=== PATIENT | male | born 1955 | race Caucasian/White ===

== ENCOUNTER 2016-09-29 12:54 | Emergency (ER) | payer OTHER ==
[~2016-09-29] VITALS: Ht 193 cm; Wt 104.0 kg
[~2016-09-29 12:54] MED LIST: BUSP5TAB PO; CEPH500C PO; LACT PO; LEVO.125 PO; OXYC1TAB63 PO; blood pressure med PO
[2016-09-29 12:56] VITALS: BP 129/75; PULSE 75; RESP 16; TEMP 97.7; O2SAT 96
[2016-09-29] MEDS ORDERED: CARBAMIDE PEROXIDE 6.5% OTIC SOLN 15 ML BTL RIGHT EAR ONE (13:15)
--- NOTE | 2016-09-29 13:17 | PD ---
HPI Chief Complaint: ENT Complaint Time Seen by Provider: 13:12 Travel History International Travel<30 days: No Contact w/Intl Traveler<30days: No Traveled to known affect area: No History of Present Illness HPI 60-year-old male presents to the emergency room for evaluation of right ear fullness, pain, and disequilibrium for the past 3 days. Patient states when symptoms started he purchased multiple [id number] remedies to remove earwax such as occult syringe, hydrogen peroxide, and wax drops but has had no success. He typically uses primary care physician remove the earwax but he has not been able to get an appointment with her lately. Patient denies fever, chills, nausea, vomiting, or any other upper respiratory symptoms. He has not been swimming recently. PFSH Past Medical History Hx Anticoagulant Therapy: No Arthritis: Yes Autoimmune Disease: No Anxiety: No Depression: Yes (takes buspar) Cancer: No Cardiovascular Problems: No Chemotherapy: No Diabetes: No Diminished Hearing: No Endocrine: Yes Gastrointestinal Disorders: Yes GERD: Yes Genitourinary: No Hypertension: Yes Immune Disorder: No Implanted Vascular Access Dvce: Yes Musculoskeletal: Yes Neurologic: No Psychiatric: No Reproductive: No Respiratory: No Immunizations Current: Yes Radiation Therapy: No Thyroid Disease: Yes Influenza Vaccination: Yes Past Surgical History Abdominal Surgery: No Body Medical Devices: mini in left leg Cardiac Surgery: No Ear Surgery: No Endocrine Surgery: No Eye Surgery: No Genitourinary Surgery: No Gynecologic Surgery: No Neurologic Surgery: Yes (cervical spinal fusion) Oral Surgery: No Thoracic Surgery: No Other Surgery: Yes (neck fusion) Social History Alcohol Use: Yes (socially beer or mix drinks) Tobacco Use: Yes (1 PPD) Substance Use: No Allergies-Medications (Allergen,Severity, Reaction): Coded Allergies: Penicillin (Verified Allergy, Severe, HIVES, 01/01/16) Reported Meds & Prescriptions Reported Meds & Active Scripts Active Reported [blood pressure med] Unknown Strength Unknown Dose PO DAILY Synthroid (Levothyroxine Sodium) 125 Mcg Tab 125 Mcg PO DAILY Buspirone (Buspirone HCl) 5 Mg Tab 5 Mg PO BID Review of Systems Except as stated in HPI: all other systems reviewed are Neg Physical Exam Narrative GENERAL: Well-nourished, well-developed male in no acute distress. Afebrile. Ambulatory. SKIN: Focused skin assessment warm/dry. HEAD: Normocephalic. EYES: No scleral icterus. No injection or drainage. EARS: Bilateral pinnae and external canals appear within normal limits; right is occluded. Left tympanic membrane without erythema, dullness or perforation. Right tympanic membrane cannot be visualized due to cerumen impaction. NECK: Supple, trachea midline. No JVD or lymphadenopathy. CARDIOVASCULAR: Regular rate and rhythm without murmurs, gallops, or rubs. RESPIRATORY: Breath sounds equal bilaterally. No accessory muscle use. Data Data Last Documented VS Vital Signs Date Time Temp Pulse Resp B/P Pulse Ox O2 Delivery O2 Flow Rate FiO2 09/29/16 12:56 97.7 75 16 129/75 96 Orders Ear Irrigation (09/29/16 13:11) Carbamide Peroxide 6.5% Otic (Debrox 6.5 (09/29/16 13:15) MDM Medical Decision Making Medical Screen Exam Complete: Yes Emergency Medical Condition: Yes Medical Record Reviewed: Yes Differential Diagnosis Cerumen impaction, disequilibrium, otitis media, otitis externa Narrative Course 60-year-old male presents to the emergency room for evaluation of right ear fullness, decreased hearing, pain, and disequilibrium for the past 3 days. At home remedies have not been successful. Physical exam reveals cerumen impaction in the right ear. Patient was given Debrox and ear irrigation was performed while he was in the emergency room. He reports great relief in symptoms. Patient discharged with instructions to follow up with an ENT doctor or return for worsening symptoms. He understands and agrees to plan. Diagnosis Primary Impression: Cerumen impaction Qualified Code: H61.21 - Impacted cerumen of right ear Referrals: Ear / Nose / Throat Specialist Primary Care Physician Patient Instructions: Cerumen Impaction (ED), General Instructions Additional Instructions: Rest and drink plenty of fluids. Follow-up with ENT doctor. Return to the emergency room for worsening symptoms. Med/Other Pt SpecificInfo: Prescription(s) given Disposition: 01 DISCHARGE HOME Condition: Stable Raysa Jose Sep 29, 2016 13:17
== END 2016-09-29 13:58 | disposition home or self-care (01) ==
LOC: PHEFT 12:54
DX: H61.21 Impacted cerumen, right ear (principal); I10 Essential (primary) hypertension; E07.9 Disorder of thyroid, unspecified; F17.200 Nicotine dependence, unspecified, uncomplicated; Z87.39 Personal history of other diseases of the musculoskeletal system and connective tissue; Z86.59 Personal history of other mental and behavioral disorders; Z87.19 Personal history of other diseases of the digestive system
CPT/HCPCS: 99282